=== PATIENT | male | born 1960 | race Caucasian/White ===

== ENCOUNTER 2016-11-27 01:39 | Emergency (ER) | payer BC ==
[2016-11-27] MEDS ORDERED: Famotidine 20 MG Tab PO ONE (02:04)
[2016-11-27] MEDS ORDERED: methylPREDNISolone Sodium Succinate 125 MG/2 ML SDV IM ONE (02:04)
--- NOTE | 2016-11-27 02:14 | EDM.PDOC ---
ED HPI GENERAL MEDICAL PROBLEM - General Chief Complaint: Allergic Reaction Stated Complaint: HIVES Time Seen by Provider: 11/27/16 01:50 Source of Information: Reports: Patient History Limitations: Reports: No Limitations - History of Present Illness INITIAL COMMENTS - FREE TEXT/NARRATIVE: HISTORY AND PHYSICAL: History of present illness: [48-year-old male with no prior history of allergies except penicillin now presents emergency department concerned that he is having allergic reaction. Patient awoke yesterday morning with slightly swollen lips and itchy hives. He had no shortness breath difficulty swallowing or voice changes. Patient took some Benadryl and had some relief. Mid day yesterday symptoms recurred which were again relieved with Benadryl. A short time ago patient awoke with the same symptoms so he came to the emergency department. Again no voice changes shortness of breath stridor or wheezing. No known allergic trigger. Patient is not on an PRINCESS inhibitor Review of systems As per history of present illness and below otherwise all systems reviewed and negative. Past medical history: As per history of present illness and as reviewed below otherwise noncontributory. Surgical history: As per history of present illness and as reviewed below otherwise noncontributory. Social history: No reported history of drug or alcohol abuse. Family history: As per history of present illness and as reviewed below otherwise noncontributory. Physical exam: Well-appearing patient distress. Trace lower lip angioedema. No tongue swelling normal oropharynx no stridor or dysphonia. Lungs clear bilaterally with no wheezing remainder exam is benign. No urticaria and no rash HEENT: Atraumatic, normocephalic, pupils reactive, negative for conjunctival pallor or scleral icterus, mucous membranes moist, throat clear, neck supple, nontender, trachea midline. Lungs: Clear to auscultation, breath sounds equal bilaterally, chest nontender. Heart: S1S2, regular, negative for clicks, rubs, or JVD. Abdomen: Soft, nondistended, nontender. Negative for masses or hepatosplenomegaly. Negative for costovertebral tenderness. Pelvis: Stable nontender. Genitourinary: Deferred. Rectal: Deferred. Extremities: Atraumatic, negative for cords or calf pain. Neurovascular unremarkable. Neuro: Awake, alert, oriented. Cranial nerves II through XII unremarkable. Cerebellum unremarkable. Motor and sensory unremarkable throughout. Exam nonfocal. Diagnostics: [] Therapeutics: [Solu-Medrol IM and Pepcid by mouth] Impression: [] Plan: [Signs and symptoms consistent with allergic reaction mild lip angioedema no evidence of airway involvement otherwise. Urticaria which is now improved. Patient stable and agrees with outpatient follow-up. Steroids and Pepcid given in ED patient has Benadryl at home. He is aware to follow-up with primary care for reevaluation and allergy testing after symptoms resolve. Strict return precautions given] Definitive disposition and diagnosis as appropriate pending reevaluation and review of above. - Related Data Allergies Allergy/AdvReac Type Severity Reaction Status Date / Time Penicillins Allergy Hives Verified 11/27/16 01:46 Home Meds: Home Meds Aspirin [Halfprin] 1 mg PO DAILY 11/27/16 [History] Famotidine [Pepcid] 20 mg PO BID #20 tablet 11/27/16 [Rx] Metoprolol Succinate 50 mg PO DAILY 11/27/16 [History] Multivitamins [Tab-A-Sadi] 1 tab PO DAILY 11/27/16 [History] Prednisone [IMW: predniSONE] 60 mg PO WITHBREAKFAST #5 tab 11/27/16 [Rx] Triamterene/Hydrochlorothiazid [Dyazide 37.5-25] 25 - 37.5 mg PO DAILY 11/27/16 [History] Past Medical History - Past Health History Medical/Surgical History: Denies Medical/Surgical History Cardiovascular History: Reports: High Cholesterol, Hypertension Respiratory History: Reports: Asthma - Infectious Disease History Infectious Disease History: Reports: Measles Social & Family History - Family History Family Medical History: Noncontributory - Tobacco Use Smoking Status *Q: Never Smoker Second Hand Smoke Exposure: No - Caffeine Use Caffeine Use: Reports: None - Recreational Drug Use Recreational Drug Use: No ED ROS ALLERGIC REACTION - Review of Systems Review Of Systems: See Below (History of present illness) ED EXAM GENERAL NO PERIP PULSE - Physical Exam Exam: See Below (History of present illness) Course - Vital Signs Last Recorded V/S: Last Vital Signs Temp 36.3 C 11/27/16 01:43 Pulse 73 11/27/16 02:30 Resp 18 11/27/16 02:30 BP 126/89 11/27/16 02:30 Pulse Ox 99 11/27/16 02:30 - Orders/Labs/Meds Meds: Medications Discontinued Medications Generic Name Dose Route Start Last Admin Trade Name Slime PRN Reason Stop Dose Admin Famotidine 20 mg 11/27/16 02:04 11/27/16 02:14 Pepcid PO 11/27/16 02:05 20 mg ONETIME ONE Administration Methylprednisolone Sodium Succinate 125 mg 11/27/16 02:04 11/27/16 02:15 Solu-Medrol IM 11/27/16 02:05 125 mg ONETIME ONE Administration Departure - Departure Time of Disposition: 02:06 Disposition: Home, Self-Care 01 Clinical Impression: Allergic reaction, Urticaria, Angioedema of lips - Discharge Information Prescriptions: Famotidine [Pepcid] 20 mg PO BID #20 tablet Prednisone [IMW: predniSONE] 60 mg PO WITHBREAKFAST #5 tab Instructions: Angioedema, [id number], Allergies, [id number] Referrals: PCP,None [Primary Care Provider] - Additional Instructions: It appears that you're experiencing an allergic reaction however it is not clear what may have triggered it. Finish prednisone as prescribed once a day for 5 more days. If you have itching hives or lip swelling take Benadryl 50 mg by mouth every 4-6 hours as well as Pepcid 20 mg twice a day. The Benadryl and Pepcid are medicines for use as needed but the prednisone prescription should be used as directed for 5 days no matter whether you continue to have symptoms or not. Follow-up with your DrLindsay tomorrow for reevaluation and to discuss and arrange allergy testing after your symptoms resolve. Return immediately for signs of airway involvement such as shortness of breath, tongue swelling, voice changes, or sonorous respirations such as a whistling sound when you breathe.
== END 2016-11-27 02:30 | disposition home or self-care (01) ==
LOC: MW.ED 01:39
DX: T78.3XXA Angioneurotic edema, initial encounter (principal); I10 Essential (primary) hypertension; J45.909 Unspecified asthma, uncomplicated; E78.00 Pure hypercholesterolemia, unspecified; Z88.0 Allergy status to penicillin; Z79.82 Long term (current) use of aspirin; Z79.899 Other long term (current) drug therapy
CPT/HCPCS: 96372; 99283; A9270; J2930